=== PATIENT | female | born 1955 | race Caucasian/White ===

== ENCOUNTER 2022-01-21 15:38 | Emergency (ER) | payer OTHER ==
[~2022-01-21] VITALS: Ht 160 cm; Wt 60.5 kg
[2022-01-21 15:39] VITALS: BP 162/76
[2022-01-21] MEDS ORDERED: PERCOCET 5MG/325MG TAB PO ONE (16:15)
[2022-01-21] MEDS ORDERED: PERC5TAB12 PO ×2 (17:22→18:22)
[2022-01-24] MEDS ORDERED: METO1TAB7 PO (09:40)
[2022-01-24] MEDS ORDERED: OMEP40CA5 PO (09:40)
[2022-01-24] MEDS ORDERED: DICY20TA20 PO (13:05)
[2022-01-24] MEDS ORDERED: MECL-86 PO (13:05)
[2022-01-24] MEDS ORDERED: VITMTA PO (13:05)
[2022-01-24] MEDS ORDERED: TRIA75TA PO (13:05)
[2022-01-24] MEDS ORDERED: DIPH2.5T15 PO (13:05)
== END 2022-01-21 17:49 | disposition home or self-care (01) ==
LOC: M ED 15:38
DX: S52.351A Displaced comminuted fracture of shaft of radius, right arm, initial encounter for closed fracture (principal); W10.9XXA Fall (on) (from) unspecified stairs and steps, initial encounter; F10.10 Alcohol abuse, uncomplicated; Y92.009 Unspecified place in unspecified non-institutional (private) residence as the place of occurrence of the external cause; Y93.9 Activity, unspecified; Z88.2 Allergy status to sulfonamides; Y99.0 Civilian activity done for income or pay

== ENCOUNTER 2022-01-23 09:32 | Emergency (ER) | payer MEDICARE ==
[~2022-01-23] VITALS: Ht 160 cm; Wt 59.7 kg
[~2022-01-23 09:32] MED LIST: PERC5TAB12 PO
[2022-01-23 09:34] VITALS: BP 142/91
[2022-01-23] MEDS ORDERED: PERCOCET 5MG/325MG TAB PO ONE (10:00)
[2022-01-23] MEDS ORDERED: IBUPROFEN 800 MG TAB PO ONE (10:10)
[2022-01-23] MEDS ORDERED: IBUP80TA PO (10:19)
[2022-01-24] MEDS ORDERED: METO1TAB7 PO (09:40)
[2022-01-24] MEDS ORDERED: OMEP40CA5 PO (09:40)
[2022-01-24] MEDS ORDERED: DIPH2.5T15 PO (13:05)
[2022-01-24] MEDS ORDERED: VITMTA PO (13:05)
[2022-01-24] MEDS ORDERED: MECL-86 PO (13:05)
[2022-01-24] MEDS ORDERED: DICY20TA20 PO (13:05)
[2022-01-24] MEDS ORDERED: TRIA75TA PO (13:05)
== END 2022-01-23 10:36 | disposition home or self-care (01) ==
LOC: M ED 09:32
DX: G89.11 Acute pain due to trauma (principal); M79.601 Pain in right arm; Z88.2 Allergy status to sulfonamides; Z79.899 Other long term (current) drug therapy

== ENCOUNTER 2022-01-25 10:05 | Day surgery (SDC) | payer MEDICARE ==
[~2022-01-25] VITALS: Ht 160 cm; Wt 58.5 kg
[~2022-01-25 10:05] MED LIST changes: +DICY20TA20 PO; +DIPH2.5T15 PO; +IBUP80TA PO; +MECL-86 PO; +METO1TAB7 PO; +OMEP40CA5 PO; +TRIA75TA PO; +VITMTA PO
[2022-01-25] MEDS ORDERED: EPINEPHrine INJ 1 MG/ML 1ML AMP PN ONE (10:40)
[2022-01-25] MEDS ORDERED: LIDOCAINE 1% SDV 5ML VIAL PN ONE (10:40)
[2022-01-25] MEDS ORDERED: ROPIvacaine 0.5% 30ML INJECTION (J2795 PER 1MG) PN ONE (10:40)
[2022-01-25] MEDS: MIDAZOLAM INJ 2MG/2ML VIAL (J2250 PER 1MG) IV PRN ×2 (11:22→11:30)
[2022-01-25] MEDS: fentaNYL 100 MCG/2 ML INJECTION IV PRN ×2 (11:22→11:44)
[2022-01-25] MEDS ORDERED: LIDOCAINE 2% 100MG/5ML SDV (FOR ANES.) As Ordered ONE (11:41)
[2022-01-25] MEDS ORDERED: propofoL 200 MG/20 ML VIAL As Ordered ONE (11:41)
[2022-01-25] MEDS ORDERED: fentaNYL 100 MCG/2 ML INJECTION As Ordered ONE (11:41)
[2022-01-25] MEDS ORDERED: BACITRACIN OINTMENT 30GM TUBE As Ordered ONE (12:05)
[2022-01-25] MEDS ORDERED: BUPIVACAINE HCL 0.25% 30ML VIAL As Ordered ONE (12:05)
[2022-01-25] MEDS ORDERED: ceFAZolin 2 GM/D5W 50 ML IV BAG (J0690 PER 500MG) As Ordered ONE (12:16)
[2022-01-25] MEDS ORDERED: ONDANSETRON 4MG 2ML VIAL As Ordered ONE (12:23)
[2022-01-25] MEDS ORDERED: dexameTHASONE 4 MG/ML 1ML VIAL (J1100 PER 1MG) As Ordered ONE (12:23)
[2022-01-25] MEDS ORDERED: ACETAMINOPHEN 1000MG 100ML IV BTL (OFIRMEV) (J0131 PER 10MG) As Ordered ONE (12:25)
[2022-01-25] MEDS ORDERED: KETOROLAC 60MG 2ML VIAL As Ordered ONE (12:35)
[2022-01-25] MEDS ORDERED: ePHEDrine SULFATE 25 MG/5 ML(5MG/ML) SYRINGE As Ordered ONE (12:36)
[2022-01-25] MEDS ORDERED: oxyCODONE 5MG TAB PO PRN (13:15)
[2022-01-25] MEDS ORDERED: fentaNYL 100 MCG/2 ML INJECTION IV PRN (13:15)
[2022-01-25] MEDS ORDERED: ONDANSETRON 4MG 2ML VIAL IV PRN (13:15)
[2022-01-25] MEDS ORDERED: LR 1,000 ML IV SCH (13:15)
[2022-01-25] MEDS ORDERED: PERC5TAB12 PO (13:23)
[2022-01-25 14:45] VITALS: BP 150/82
== END 2022-01-25 14:50 | disposition home or self-care (01) ==
LOC: M SDC 10:05
PROVIDERS: ATTEND Orthopaedic Surgery Hand Surgery
DX: S52.531A Colles' fracture of right radius, initial encounter for closed fracture (principal); W01.0XXA Fall on same level from slipping, tripping and stumbling without subsequent striking against object, initial encounter; Y92.007 Garden or yard of unspecified non-institutional (private) residence as the place of occurrence of the external cause; Y99.9 Unspecified external cause status; Y93.9 Activity, unspecified; I10 Essential (primary) hypertension; K58.8 Other irritable bowel syndrome; K21.9 Gastro-esophageal reflux disease without esophagitis; Z92.3 Personal history of irradiation; Z85.44 Personal history of malignant neoplasm of other female genital organs; Z87.891 Personal history of nicotine dependence; Z88.2 Allergy status to sulfonamides
CPT/HCPCS: 25607; 76000; 87635; 93005; C1713; J0131; J0171; J0690; J1100; J1885; J2250; J2405; J2795; J3010